=== PATIENT | female | born 1995 | race African-American/Black ===

== ENCOUNTER 2019-05-16 12:47 | Emergency (ER) | payer MEDICAID ==
[~2019-05-16] VITALS: Ht 167.6 cm; Wt 124.0 kg
[~2019-05-16 12:47] MED LIST: FERR325C PO; IBUP-779 PO; MULT-1116 PO
[2019-05-16] MEDS ORDERED: SODIUM CHLORIDE 0.9% 1,000 ML IV ONE (14:48)
[2019-05-16] MEDS ORDERED: ACETAMINOPHEN 325MG TABLET PO PRN (15:00)
[2019-05-16] MEDS ORDERED: ONDANSETRON HCL 4MG/2ML INJ IV ONE (15:00)
[2019-05-16 15:08] LABS: BASOPHILS % 0.3 % (0.0-2.0); EOSINOPHILS % 2.9 % (0.0-5.0); HEMOGLOBIN. 11.1 g/dL (12.0-16.0); LYMPHOCYTES % 29.6 % (20.0-50.0); MEAN CORPUSCULAR HEMOGLOBIN 22.9 pg (28.0-32.0); MEAN CORPUSCULAR VOLUME 72.3 fL (81.0-99.0); MEAN PLATELET VOLUME 8.4 fl (7.4-10.4); MONOCYTES % 6.9 % (2.0-8.0); NEUTROPHILS % 60.3 % (40.0-76.0); PLATELET 343 x1000/uL (130-400); RED BLOOD CELL COUNT 4.84 mill/uL (4.2-5.4); RED CELL DISTRIBUTION WIDTH 18.6 % (11.6-14.6)
[2019-05-16 15:12] LABS: CHLORIDE 101 mEq/L (98-107)
[2019-05-16 15:23] LABS: B-HCG QUANTITATIVE < 1 mIU/mL (<3)
[2019-05-16 16:07] VITALS: BP 124/78
== END 2019-05-16 17:29 | disposition left against medical advice (07) ==
LOC: ER 12:47
DX: R10.13 Epigastric pain (principal); R11.10 Vomiting, unspecified
CPT/HCPCS: 36415; 80053; 81025; 83690; 84702; 85025; 96361; 96374; 99283; J2405; J7030

== ENCOUNTER 2019-05-16 19:40 | Emergency (ER) | payer MEDICAID ==
[~2019-05-16] VITALS: Ht 172.7 cm; Wt 126.0 kg
[2019-05-16 20:09] VITALS: BP 155/94
== END 2019-05-16 21:30 | disposition left against medical advice (07) ==
LOC: ER 19:40
DX: R10.9 Unspecified abdominal pain (principal); Z53.21 Procedure and treatment not carried out due to patient leaving prior to being seen by health care provider

== ENCOUNTER 2020-01-02 21:14 | Emergency (ER) | payer MEDICAID ==
[~2020-01-02] VITALS: Ht 170.2 cm; Wt 130.0 kg
[2020-01-02] MEDS ORDERED: SODIUM CHLORIDE 0.9% 1,000 ML IV ONE (22:21)
[2020-01-02] MEDS ORDERED: ACETAMINOPHEN 325MG TABLET PO PRN (22:30)
[2020-01-02] MEDS ORDERED: ONDANSETRON HCL 4MG/2ML INJ IV ONE (22:30)
[2020-01-02 22:59] LABS: BASOPHILS % 0.4 % (0.0-2.0); EOSINOPHILS % 1.6 % (0.0-5.0); HEMATOCRIT. 28.4 % (36.0-48.0); HEMOGLOBIN. 8.9 g/dL (12.0-16.0); LYMPHOCYTES % 26.1 % (20.0-50.0); MEAN CORPUSCULAR HEMOGLOBIN 20.4 pg (28.0-32.0); MEAN CORPUSCULAR VOLUME 65.2 fL (81.0-99.0); MEAN PLATELET VOLUME 8.1 fl (7.4-10.4); MONOCYTES % 6.3 % (2.0-8.0); NEUTROPHILS % 65.6 % (40.0-76.0); PLATELET 324 x1000/uL (130-400); RED BLOOD CELL COUNT 4.35 mill/uL (4.2-5.4); RED CELL DISTRIBUTION WIDTH 19.4 % (11.6-14.6)
[2020-01-02 23:01] LABS: CHLORIDE 103 mEq/L (98-107)
[2020-01-02 23:25] LABS: B-HCG QUANTITATIVE 91771 mIU/mL (<3)
[2020-01-02 23:43] LABS: CLARITY URINE CLEAR (CLEAR); COLOR URINE DARK YELLOW (YELLOW); KETONES URINE NEGATIVE (NEGATIVE); LEUKOCYTE ESTERASE URINE 3+ (NEGATIVE); NITRITE URINE NEGATIVE (NEGATIVE); OCCULT BLOOD URINE NEGATIVE (NEGATIVE); PH URINE 5.5 (4.5-8.0); PROTEIN URINE NEGATIVE (NEGATIVE); SPECIFIC GRAVITY URINE 1.021 (1.005-1.030)
[2020-01-02 23:48] LABS: PLATELET ESTIMATE NORMAL
[2020-01-03] MEDS ORDERED: CEFTRIAXONE 1 G PREMIX 50 ML IV NR (00:30)
[2020-01-03 02:41] VITALS: BP 105/77
== END 2020-01-03 02:49 | disposition home or self-care (01) ==
LOC: ER 21:14
DX: O34.11 Maternal care for benign tumor of corpus uteri, first trimester (principal); D25.2 Subserosal leiomyoma of uterus; O23.41 Unspecified infection of urinary tract in pregnancy, first trimester; O99.011 Anemia complicating pregnancy, first trimester; O26.612 Liver and biliary tract disorders in pregnancy, second trimester; K76.0 Fatty (change of) liver, not elsewhere classified; Z3A.12 12 weeks gestation of pregnancy
CPT/HCPCS: 36415; 76700; 76801; 80053; 81003; 81025; 84702; 85025; 86850; 86900; 86901; 96374; 99285; J2405; J7030

== ENCOUNTER 2023-11-29 20:15 | Emergency (ER) | payer MEDICAID ==
[~2023-11-29] VITALS: Ht 172.7 cm; Wt 118.0 kg
[2023-11-29] MEDS ORDERED: KETOROLAC 60MG/2ML VIAL IM ONE (21:30)
[2023-11-29 22:18] LABS: CALCIUM 8.9 mg/dL (8.7-10.4); CARBON DIOXIDE 26 mEq/L (21-32); CHLORIDE 106 mEq/L (98-107); CREATININE 0.6 mg/dL (0.6-1.0); GLUCOSE 92 mg/dL (70-105); POTASSIUM 3.7 mEq/L (3.5-5.1); SODIUM 136 mEq/L (136-145); UREA NITROGEN BLOOD 10 mg/dL (9-23)
== END 2023-11-30 00:07 | disposition home or self-care (01) ==
LOC: ER 20:15
DX: R25.2 Cramp and spasm (principal); F12.90 Cannabis use, unspecified, uncomplicated; Z98.890 Other specified postprocedural states; Z68.39 Body mass index [BMI] 39.0-39.9, adult
CPT/HCPCS: 80048; 36415; 99283; J1885; Z7610